=== PATIENT | female | born 1965 | race Caucasian/White ===

== ENCOUNTER → 2016-10-30 | Outpatient (CLI) | payer OTHER ==
[~2016-10-30] MED LIST: ALBUAER2 INH; ASPI81TA28 PO; CHOL100010 PO; CRDCD120 PO; IBUP-1050 PO; MAGN400T6 PO; METO-217 PO; MULTAG PO; Potassium Gluconate PO
--- NOTE | 2016-10-31 14:51 | MAMMOGRAPHY REPORT ---
BILATERAL DIGITAL SCREENING MAMMOGRAM TOMOSYNTHESIS WITH CAD: 10/30/2016 CLINICAL HISTORY: Routine screening. Patient has no complaints. TECHNIQUE: Breast tomosynthesis in addition to standard 2D mammography was performed. Current study was also evaluated with a Computer Aided Detection (CAD) system. COMPARISON: Comparison is made to exams dated: 10/25/2015 mammogram, 09/07/2014 mammogram, 09/01/2013 mammogram, 08/11/2012 mammogram, and 05/01/2011 mammogram - [facility]. BREAST COMPOSITION: The tissue of both breasts is heterogeneously dense, which may obscure small ma sses. FINDINGS: There is a ribbon shaped metallic biopsy marker within a circumscribed mass in the 1:00 pe riareolar left breast, representing the biopsy-proven fibroadenoma. No new suspicious mass, archite ctural distortion or cluster of microcalcifications is seen. IMPRESSION: ACR BI-RADS CATEGORY 1: NEGATIVE There is no mammographic evidence of malignancy. A 1 year screening mammogram is recommended. The p atient will receive written notification of the results. Approximately 10% of breast cancers are not detected with mammography. A negative mammographic repor t should not delay biopsy if a clinically suggestive mass is present. Noreen Godoy M.D. ay/:10/30/2016 18:42:18 Resource Center Teacher: Mariaelena Walker, [facility] letter sent: Normal 1/2 BI-RADS Code: ACR BI-RADS Category 1: Negative
== END | disposition home or self-care (01) ==
LOC: C.MAMM 10:36
PROVIDERS: ATTEND Family Medicine
DX: Z12.31 Encounter for screening mammogram for malignant neoplasm of breast (principal)

== ENCOUNTER → 2016-12-24 | Outpatient (CLI) | payer OTHER | END | disposition home or self-care (01) | LOC: C.PAPS 10:03 | PROVIDERS: ATTEND Obstetrics & Gynecology | DX: Z01.419 Encounter for gynecological examination (general) (routine) without abnormal findings (principal) ==

== ENCOUNTER → 2017-04-01 | Outpatient (CLI) | payer OTHER ==
--- NOTE | 2017-04-01 13:34 | MAMMOGRAPHY REPORT ---
UNILATERAL LEFT DIGITAL DIAGNOSTIC MAMMOGRAM TOMOSYNTHESIS WITH CAD AND TARGETED LEFT ULTRASOUND: CLINICAL HISTORY: 51-year-old woman presents with a new palpable lump in the left anterior breast shi t she has noticed for approximately 2 weeks. History of prior left breast biopsy in the 1:00 periare olar breast performed 09/21/2013, which pathology results yielded: "Benign breast tissue. Negative for DCIS and invasive carcinoma.". TECHNIQUE: Left breast tomosynthesis in addition to standard 2D mammography was performed. Current st udy was also evaluated with a Computer Aided Detection (CAD) system. COMPARISON: Comparison is made to exams dated: 10/30/2016 mammogram, 10/25/2015 mammogram, 09/07/2014 m ammogram, 09/01/2013 mammogram, 08/11/2012 mammogram, and 05/01/2011 mammogram - [facility]. BREAST COMPOSITION: The tissue of the left breast is heterogeneously dense, which may obscure small masses. FINDINGS: A triangle shaped palpable marker was placed on the skin of the 1:00 periareolar left breas t, denoting the palpable lump pointed out by the patient. There is a circumscribed mass in the area of concern, in the 1:00 periareolar left breast, measuring 9.8 x 15.0 x 14.0 mm. A ribbon-shaped bio psy marker clip is seen along the posterior aspect of this mass, suggesting it has been previously bi opsied. No other obvious mass, focal area of architectural distortion, asymmetry or suspicious calci fications are identified in the left breast. Targeted ultrasound was performed in the area of palpable lump pointed out by the patient, within the 1:00 periareolar left breast. There is a parallel hypoechoic solid circumscribed mass measuring 13. 5 x 7.3 x 13.4 mm. A linear echogenic biopsy marker clip is seen within the mass along the deep aspe ct. When comparing to prior ultrasounds, particularly the 09/04/2013 ultrasound, this mass has incre ased in size, as it previously measured 8 mm. Given the interval increase in size and newly palpable nature by the patient, as well as that pathology results simply yielded benign breast tissue, not a masslike lesion such as a fibroadenoma, would recommend a repeat biopsy for definitive characterizati on. Another option of surgical excision was provided but we will opt for a minimally invasive biopsy to resample at this time. IMPRESSION: ACR BI-RADS CATEGORY 4: SUSPICIOUS, TARGETED ULTRASOUND ACR BI-RADS CATEGORY 4: SUSPICIO US 1. Ultrasound guided core biopsy is recommended for a solid 13.5 mm palpable mass in the 1:00 periar eolar left breast, that could simply represent a fibroadenoma that is increasing in size. However, p rior pathology results simply yielded benign breast tissue and there is an interval mammographic/sono graphic change. These results and recommendations were discussed with the patient at the time of the exam. She tenta tively scheduled the biopsy prior to leaving our department. Approximately 10% of breast cancers are not detected with mammography. A negative mammographic report should not delay biopsy if a clinically suggestive mass is present. Noreen Godoy M.D. ay/:04/01/2017 12:35:36 Physician President: Mary BHARDWAJ(Blanco)(Cleo), [facility] letter sent: Abnormal 4/5 BI-RADS Code: ACR BI-RADS Category 4: Suspicious Ultrasound BI-RADS: ACR BI-RADS Category 4: Suspici ous
== END | disposition home or self-care (01) ==
LOC: C.MAMM 11:25
PROVIDERS: ATTEND Physician Assistant
DX: N63.20 Unspecified lump in the left breast, unspecified quadrant (principal)

== ENCOUNTER → 2017-04-16 | Outpatient (CLI) | payer OTHER ==
--- NOTE | 2017-04-16 14:01 | Discharge Instructions ---
Discharge Instructions Procedure Procedure Date: Apr 16, 2017. Reason for visit: Left Palpable Mass. Discharge Discharge Date: Apr 16, 2017. Discharge Diagnosis: post left breast ultrasound guided core biopsy Instructions Activity Recommendations: Additional Limitations (see below) Return to School/Work: no limitations Recommended Home Diet: No Limitations Provider Instructions: ACTIVITY RECOMMENDATIONS: * No lifting, pushing, pulling or exercising the affected side for three days. RETURN TO SCHOOL/WORK: * You may return to work/school after the procedure, but do not perform any strenuous activities for 24 to 48 hours. MEDICATIONS: * Tylenol (two 325 mg) every four to six hours if needed for mild pain (if not allergic to Tylenol). DIET: * Resume previous diet. SPECIAL CARE INSTRUCTIONS: * Keep biopsy site dry for 24 hours. May shower after 24 hours, but do not soak (bathe) incision. * May remove Tegaderm (plastic patch) tomorrow AFTER showering. * Leave the steri-strips on for one week. Allow the steri-strips to fall off by themselves. If not off after one week, you may remove them. You may place a Bandaid crosswise over the strips, if desired. * Apply ice 10 minutes on and 10 minutes off as needed. * Wear a bra at bedtime to sleep more comfortably for 2-3 days. * Your referring physician should have the results after approximately 5 to 7 business days. * Call for unusual bleeding, fever, drainage, etc or if you have any questions call [phone] during normal business hours or after hours call Dr Godoy, . FOLLOW UP VISIT: Follow-up with Referring Physician as scheduled. Allergies Coded Allergies: Sulfa Antibiotics (Verified Adverse Reaction, Mild, NAUSEA, 11/21/11) Alfredo Bhardwaj Recommendations: Call your doctor if: * Temperature above 101 degrees * Pain not relieved by pain medicine ordered * There is increased drainage or redness from any incision * You have any unanswered questions or concerns. Your Doctors Instructions noted above were prepared by provider Noreen Godoy. Patient Signature Section: Patient Instructions Signature Page Monie Ivy Patient (or Guardian) Signature/Date: I have read and understand the instructions given to me by my caregivers. Caregiver/RN/Doctor Signature/Date: The above-named patient and/or guardian has received patient instructions on this date. + Original Patient Signature Page (only) stays with chart. Please make copy for patient.
--- NOTE | 2017-04-17 07:37 | MAMMOGRAPHY REPORT ---
ULTRASOUND GUIDED BIOPSY LEFT BREAST: 04/16/2017 CLINICAL HISTORY: Increased size of a solid palpable mass in the 1:00 periareolar left breast. Patie nt presents for ultrasound guided core biopsy. This mass was previously biopsied and yielded benign breast tissue. COMPARISON: Comparison is made to exams dated: 04/01/2017 ultrasound, 04/01/2017 mammogram, 7 mammogram, 10/25/2015 mammogram, 09/07/2014 mammogram, and 09/21/2013 ultrasound biopsy - [facility]. PATIENT CONSENT: The procedure, risks and benefits were discussed with the patient and informed conse nt was obtained both verbally and in writing. Specific risks to this procedure include: bleeding, in fection, puncture of adjacent structure, nontarget biopsy, sampling error, pain, metal allergy and me dication reaction. PROCEDURE DESCRIPTION: A time out was performed and the left breast was agreed as the site of biopsy. The skin was prepped and draped in the usual sterile fashion. The oval circumscribed solid palpable 13.5 mm mass in the 1:00 periareolar left breast was chosen as the target for biopsy. Subcutaneous an d intraparenchymal 1% buffered lidocaine, with and without epinephrine, was administered as local ane sthesia. A skin incision was made. Through the incision, 4 samples were taken with a 14 gauge Achiev e biopsy device. A wing shaped metallic marker was placed at the biopsy site. Hemostasis was achieved after manual compression. The patient tolerated the procedure well and there was no immediate compli cation. The samples were sent to the pathology department in an appropriately labeled container. Postprocedure left CC and ML tomosynthesis images were obtained. A new ring-shaped biopsy marker cli p is seen within the circumscribed mass in the 1:00 anterior periareolar left breast. A stable ribbo n-shaped clip is seen along the posterior border of the mass, denoting the prior biopsy from 2013. IMPRESSION: ULTRASOUND GUIDED BIOPSY Status post ultrasound-guided core biopsy of an indeterminate solid palpable increasing mass in the 1 :00 periareolar left breast, with new wing-shaped biopsy marker clip placed at the site. The patient will receive notification of the biopsy results from her referring physician. Noreen Godoy M.D. ay/:04/16/2017 14:27:59 Timber Cutter: Mariaelena BHARDWAJ(R)(M), [facility]
--- NOTE | 2017-04-17 07:40 | MAMMOGRAPHY REPORT ---
UNILATERAL LEFT DIGITAL DIAGNOSTIC MAMMOGRAM TOMOSYNTHESIS: 04/16/2017 CLINICAL HISTORY: Status post ultrasound-guided core biopsy of a palpable mass in the 1:00 periareola r left breast that had been previously biopsied but increased in size comparing to prior mammograms a nd ultrasound. It was newly palpable by the patient. Please refer to the report from left breast ultrasound-guided core biopsy performed at the same time for full detail. IMPRESSION: POST PROCEDURE IMAGING FOR MARKER PLACEMENT Please refer to the report from left breast ultrasound-guided core biopsy performed at the same time for full detail. Approximately 10% of breast cancers are not detected with mammography. A negative mammographic report should not delay biopsy if a clinically suggestive mass is present. Noreen Godoy M.D. ay/:04/16/2017 14:03:07 Industrial Sociologist: Mariaelena BHARDWAJ(R)(M), [facility] BI-RADS Code: Post Procedure Imaging For Marker Placement
== END | disposition home or self-care (01) ==
LOC: C.MAMM 13:13
PROVIDERS: ATTEND Physician Assistant
DX: N63.20 Unspecified lump in the left breast, unspecified quadrant (principal); N60.92 Unspecified benign mammary dysplasia of left breast; N62 Hypertrophy of breast

== ENCOUNTER → 2017-08-27 | Day surgery (SDC) | payer OTHER ==
[2017-08-12 11:06] VITALS: Ht 170.2 cm; Wt 90.9 kg
[~2017-08-27] VITALS: Ht 170.2 cm; Wt 90.9 kg
[~2017-08-27] MED LIST changes: -ALBUAER2 INH; +ALBUTEROL HFA INHALER 8.5 GM INH ONE; +AMOX875T PO; -ASPI81TA28 PO; -CHOL100010 PO; +CHOL1TAB42 PO; -CRDCD120 PO; +DILT120T8 PO; +DOXY25TA19 PO; +DRON400T PO; -IBUP-1050 PO; +KETAMINE HCL INJ 50 MG/ML 10 ML VIAL ONE; +LIDOCAINE HCL 2% 2 ML VIAL (20MG/ML) ONE; -MAGN400T6 PO; -METO-217 PO; -MULTAG PO; +ONDANSETRON INJ 2 MG/ML 2 ML VIAL ONE; +POTA99TA PO; +PRED10TA PO; +PROPOFOL IV EMULSION 10 MG/ML 20 ML VIAL IV ONE; -Potassium Gluconate PO; +SODIUM CHLORIDE 0.9% 500ML 500 ML IV ONE; +TPRSR/50 PO; +VNTHFA/IN INH
--- NOTE | 2017-08-27 10:48 | Endo History and Physical ---
History & Physical Date of Service: Aug 27, 2017. Chief Complaint: screening Referring Physician: Dr. Gogo Gong History of Present Illness 51 yo CF who presents for screening colonoscopy. Past Surgical History Hx Cardiac Surgery: Yes (CARDIAC ABLATION, MULTIPLE CARDIOVERSIONS) Hx Internal Defibrillator: No Hx Pacemaker: No Hx Abdominal Surgery: Yes (LAP APPY) Hx of Implantable Prosthesis: No Hx Post-Op Nausea and Vomiting: No Hx Cancer Surgery: No Hx Thoracic Surgery: No Hx Orthopedic: No Hx Urinary Tract Surgery: No Family History None Social History Smoking Status: Current Every Day Smoker Hx Substance Use: No Hx Alcohol Use: Yes (~5 DRINKS/WEEK) Allergies Coded Allergies: Sulfa Antibiotics (Verified Adverse Reaction, Mild, NAUSEA, 08/12/17) Current Medications Reported Home Medications Medications Dose Route/Sig Max Daily Dose Days Date Category Dose Instructions Sleep Aid (Doxylamine Succinate (Sleep)) 25 Mg Tab 1 Tab PO HS PRN 08/12/17 Reported Vitamin D (Cholecalciferol) 5,000 Unit Tab 1 Tab PO Q3DAYS 08/12/17 Reported Potassium 99 Mg Tab 1 Tab PO DAILY PRN 08/12/17 Reported Ventolin Hfa (Albuterol) 200 Puffs/48873 Mcg Aers 2-4 Puffs INH Q6H PRN 08/12/17 Reported Prednisone 10 Mg Tab 0 PO UD 08/12/17 Reported STERAPRED 10MG 12 DAY Metoprolol Succinate ER (Metoprolol Succinate) 50 Mg Tabcr 1 Tab PO BID 08/12/17 Reported Multaq (Dronedarone Hcl) 400 Mg Tab 1 Tab PO BID 08/12/17 Reported Cardizem (Diltiazem Hcl) 120 Mg Tab 1 Tab PO BID 08/12/17 Reported Vital Signs Weight (Kilograms): 90.91 Height (Feet): 5 Height (Inches): 7 Date Time Temp Pulse Resp B/P (MAP) Pulse Ox O2 Delivery O2 Flow Rate FiO2 08/27/17 10:42 36.6 91 20 155/86 (109) 93 Room Air Physical Exam General Appearance: WD/WN, no apparent distress Respiratory/Chest: Auscultation: breath sounds normal Cardiovascular: Heart Auscultation: RRR Abdomen: Bowel Sounds: normal Inspection & Palpation: soft, non-distended, no tenderness, guarding & rebound Assessment and Plan Assessment: 51 yo CF who presents for screening colonoscopy. Plan: Proceed with colonoscopy.
--- NOTE | 2017-08-27 12:55 | Discharge Instructions ---
Endoscopy Patient Instructions Date / Procedure(s) Performed Aug 27, 2017. Colonoscopy Allergy Information Coded Allergies: Sulfa Antibiotics (Verified Adverse Reaction, Mild, NAUSEA, 08/12/17) Discharge Date / Findings Aug 27, 2017. Colon polyps Diverticulosis Internal hemorrhoids Medication Instructions OK to resume all medications today as prescribed Reported Home Medications Medications Dose Route/Sig Max Daily Dose Days Date Category Dose Instructions Sleep Aid (Doxylamine Succinate (Sleep)) 25 Mg Tab 1 Tab PO HS PRN 08/12/17 Reported Vitamin D (Cholecalciferol) 5,000 Unit Tab 1 Tab PO Q3DAYS 08/12/17 Reported Potassium 99 Mg Tab 1 Tab PO DAILY PRN 08/12/17 Reported Ventolin Hfa (Albuterol) 200 Puffs/16827 Mcg Aers 2-4 Puffs INH Q6H PRN 08/12/17 Reported Prednisone 10 Mg Tab 0 PO UD 08/12/17 Reported STERAPRED 10MG 12 DAY Metoprolol Succinate ER (Metoprolol Succinate) 50 Mg Tabcr 1 Tab PO BID 08/12/17 Reported Multaq (Dronedarone Hcl) 400 Mg Tab 1 Tab PO BID 08/12/17 Reported Cardizem (Diltiazem Hcl) 120 Mg Tab 1 Tab PO BID 08/12/17 Reported Provider Instructions Activity Restrictions - No exercising or heavy lifting for 24 hours. - Do not drink alcohol the day of the procedure. - Do not drive a car or operate machinery until the day after the procedure. - Do not make any important decisions or sign important papers in 24 hours after the procedure. Following Day: - Return to full activity which may include returning to work/school. Diet Start your diet with liquids and light foods (jello, soup, juice, toast). Then eat your usual diet if not nauseated. Treatment For Common After Affects For mild abdominal pain, bloating, or excessive gas: - Rest - Eat lightly - Lie on right side Follow-Up Information Follow-up with Dr. Gogo Gong as scheduled Anesthesia Information What You Should Know You have had a procedure that required some medicine to reduce anxiety and discomfort. This treatment is called moderate sedation. After receiving the treatment, you may be sleepy, but you will be able to breathe on your own. The effects of the treatment may last for several hours. Follow these instructions along with Activity/Diet recommendations noted above: * Do NOT do anything where dizziness or clumsiness would be dangerous. * Rest quietly at home today, then you can be up and about tomorrow. * Have a responsible person stay with you the rest of today. * You may have had an I.V. today. If so, you may take the dressing off later today. Recommendations Call your doctor if: * Trouble breathing * Continuous vomiting for more than 24 hours * Temperature above 101 degrees * Severe abdominal pain or bloating * Pain not relieved by pain medicine ordered * There is increased drainage or redness from any incision * A large amount of rectal bleeding greater than 2-3 tablespoons. (If you had a polyp/s removed or have hemorrhoids, a small amount of blood - from the rectum is to be expected.) * You have any unanswered questions or concerns. IN THE EVENT OF A SERIOUS EMERGENCY, GO TO THE NEAREST EMERGENCY ROOM Your discharge instructions were prepared by provider Tunde Ogden. Patient Instructions Signature Page Monie Ivy Patient (or Guardian) Signature/Date: I have read and understand the instructions given to me by my caregivers. Caregiver/RN/Doctor Signature/Date: The above-named patient and/or guardian has received patient instructions on this date. + Original Patient Signature Page (only) stays with chart. Please make copy for patient.
--- NOTE | 2017-08-27 13:10 | GI REPORT ---
Procedure Date: 08/27/2017 10:56 AM Procedure: Colonoscopy Indications: Screening for colorectal malignant neoplasm Medicines: Monitored Anesthesia Care Complications: No immediate complications. Estimated Blood Loss: Estimated blood loss: 25 mL requiring treatment with placement of hemostatic clip(s). Procedure: Pre-Anesthesia Assessment: - Prior to the procedure, a History and Physical was performed, and patient medications and allergies were reviewed. The patient's tolerance of previous anesthesia was also reviewed. The risks and benefits of the procedure and the sedation options and risks were discussed with the patient. All questions were answered, and informed consent was obtained. Prior Anticoagulants: The patient has taken no previous anticoagulant or antiplatelet agents. ASA Grade Assessment: II - A patient with mild systemic disease. After reviewing the risks and benefits, the patient was deemed in satisfactory condition to undergo the procedure. After I obtained informed consent, the scope was passed under direct vision. Throughout the procedure, the patient's blood pressure, pulse, and oxygen saturations were monitored continuously. The scope was introduced through the anus and advanced to the cecum, identified by appendiceal orifice and ileocecal valve. The colonoscopy was performed with moderate difficulty due to the patient's body habitus, the patient's agitation and the patient's agitation. Successful completion of the procedure was aided by changing sedation medication, Anesthesia staff assisting with sedation, changing the patient to a supine position and using manual pressure. The patient tolerated the procedure poorly due to the patient's agitation. The quality of the bowel preparation was good. The ileocecal valve, appendiceal orifice, and rectum were photographed. Findings: The perianal and digital rectal examinations were normal. A 18 mm polyp was found in the ascending colon. The polyp was flat. The polyp was removed with a saline injection-lift technique using a hot snare. The polyp was removed with a piecemeal technique using a hot snare. Polyp resection was incomplete. The resected tissue was retrieved. To prevent bleeding after the polypectomy, three hemostatic clips were successfully placed (MR conditional). There was no bleeding at the end of the procedure. Two sessile polyps were found in the ascending colon. The polyps were 5 to 10 mm in size. These polyps were removed with a hot snare. Resection and retrieval were complete. Scattered small-mouthed diverticula were found in the entire colon. Non-bleeding internal hemorrhoids were found during retroflexion. The hemorrhoids were small. Impression: - One 18 mm polyp in the ascending colon, removed using injection-lift and a hot snare and removed piecemeal using a hot snare. Incomplete resection. Resected tissue retrieved. Clips (MR conditional) were placed. - Two 5 to 10 mm polyps in the ascending colon, removed with a hot snare. Resected and retrieved. - Diverticulosis in the entire examined colon. - Non-bleeding internal hemorrhoids. Recommendation: - Resume previous diet. - Continue present medications. - Repeat colonoscopy in 6 months to review the polypectomy site. - Return to primary care physician as previously scheduled. Tunde Ogden, DO 08/27/2017 1:10:21 PM This report has been signed electronically. Note Initiated On: 08/27/2017 10:56 AM I attest to the content of the Intraoperative Record and orders documented therein, exceptions below
--- NOTE | 2017-08-27 13:58 | Anesthesiology Progress Note ---
Anesthesia Post Op Note Date & Time Aug 27, 2017 at 13:58 Vital Signs Pain Intensity: 2 Vital Signs Past 12 Hours Date Time Temp Pulse Resp B/P (MAP) Pulse Ox O2 Delivery O2 Flow Rate FiO2 08/27/17 13:35 95 20 154/79 (104) 93 Room Air 08/27/17 13:25 98 20 136/65 (88) 93 Room Air 08/27/17 13:05 36.8 105 20 168/72 (104) 91 Room Air 08/27/17 10:42 36.6 91 20 155/86 (109) 93 Room Air Notes Mental Status: alert / awake / arousable, participated in evaluation Pt Amnestic to Procedure: Yes Nausea / Vomiting: adequately controlled Pain: adequately controlled Airway Patency, RR, SpO2: stable & adequate BP & HR: stable & adequate Hydration State: stable & adequate Anesthetic Complications: no major complications apparent
[2017-08-27 14:05] VITALS: BP 156/78; PULSE 98; O2SAT 93
== END | disposition home or self-care (01) ==
LOC: C.GI 09:58
PROVIDERS: ATTEND Internal Medicine
DX: Z12.11 Encounter for screening for malignant neoplasm of colon (principal); D12.2 Benign neoplasm of ascending colon; K57.30 Diverticulosis of large intestine without perforation or abscess without bleeding; K64.8 Other hemorrhoids; I48.0 Paroxysmal atrial fibrillation; F17.200 Nicotine dependence, unspecified, uncomplicated; Z88.2 Allergy status to sulfonamides; J45.909 Unspecified asthma, uncomplicated; G47.33 Obstructive sleep apnea (adult) (pediatric); K21.9 Gastro-esophageal reflux disease without esophagitis; E66.9 Obesity, unspecified; Z90.89 Acquired absence of other organs